=== PATIENT | male | born 1950 | race Caucasian/White ===

== ENCOUNTER 2021-01-14 13:52 | Observation (INO) ==
[2021-01-14] MEDS ORDERED: oxyCODONE/Acetamin 5/325 mg TAB PO ONE (15:17)
[2021-01-14 15:48] LABS: Hematocrit 38 % (42-52); Mean Corpuscular HGB Conc 35 g/dL (31-36); Mean Corpuscular Hemoglobin 31 pg (27-31); Mean Corpuscular Volume 88 fL (80-94); Mean Platelet Volume 9.4 fL (7.4-10.4); Platelet Count 191 10^3/uL (150-450); Red Blood Count 4.27 10^6 /uL (4.18-5.48); Red Cell Distribution Width 13 % (10-15); White Blood Count 16.7 10^3/uL (3.5-10.8)
[2021-01-14 15:59] LABS: Albumin 3.6 g/dL (3.2-5.2); Calcium 8.9 mg/dL (8.6-10.3); Potassium 3.8 mmol/L (3.5-5.0); Total Bilirubin 0.7 mg/dL (0.2-1.0)
[2021-01-14 16:04] LABS: Albumin/Globulin Ratio 1.1 (1-3); C Reactive Protein 152.52 mg/L (<8.01); EGFR African American 101.5 (>60); EGFR Non-African American 83.9 (>60); Globulin 3.4 g/dL (2-4)
[2021-01-14] MEDS ORDERED: Piperacillin/Tazobac ADVAN 3.375 GM in NS 0.9% 100 ml BAG 100 ML IV ONE (16:41)
[2021-01-14] MEDS ORDERED: NS 0.9% 1000 ml BAG 1,000 ML IV ONE (16:41)
[2021-01-14] MEDS ORDERED: Piperacillin/Tazobac 3.375 GM BAG ONE (16:53)
[2021-01-14] MEDS ORDERED: Iohexol 300 (CONTRAST) 10 ML SDV IV ONE (17:13)
[2021-01-14 17:27] LABS: Urine Appearance Clear; Urine Bilirubin Negative (Negative); Urine Blood Negative (Negative); Urine Color Yellow; Urine Glucose Negative (Negative); Urine Ketones Negative (Negative); Urine Nitrite Negative (Negative); Urine Protein Negative (Negative); Urine Urobilinogen Negative (Negative)
[2021-01-14] MEDS ORDERED: HYDROcodone/ACETAMIN 5/325 mg TAB PO PRN (19:43)
[2021-01-14] MEDS ORDERED: Ondansetron 4 mg VIAL 2 MG/ML 2 ml VIAL IV PRN (19:43)
[2021-01-14] MEDS: Piperacillin/Tazobactam VIAL 3.375 GM in NS 0.9% 100 ml BAG 100 ML IVPB SCH (22:32)
[2021-01-14] MEDS: D5W 1/2 NS 1000 ml BAG 1,000 ML IV SCH (22:32)
[2021-01-14] MEDS: HYDROmorphone 1 MG/1 ML SYRINGE IV SLOW PU PRN (22:33)
[2021-01-15] MEDS: Piperacillin/Tazobactam VIAL 3.375 GM in NS 0.9% 100 ml BAG 100 ML IVPB SCH (05:43)
[2021-01-15] MEDS: HYDROmorphone 1 MG/1 ML SYRINGE IV SLOW PU PRN ×2 (05:43→08:46)
[2021-01-15 05:44] LABS: ABS Basophils 0.1 10^3/ul (0-0.2); ABS Eosinophils 0.3 10^3/ul (0-0.6); ABS Lymphocytes 1.4 10^3/ul (1.0-4.8); ABS Neutrophils 9.1 10^3/ul (1.5-7.7); Eosinophil % 2.4 %; Hematocrit 38 % (42-52); Hemoglobin 13.1 g/dL (14.0-18.0); Lymphocyte % 11.5 %; Mean Corpuscular HGB Conc 34 g/dL (31-36); Mean Corpuscular Hemoglobin 31 pg (27-31); Mean Corpuscular Volume 90 fL (80-94); Mean Platelet Volume 9.2 fL (7.4-10.4); Nucleated Red Blood Cells % 0.1; Platelet Count 186 10^3/uL (150-450); Red Blood Count 4.25 10^6 /uL (4.18-5.48); Red Cell Distribution Width 13 % (10-15); White Blood Count 11.8 10^3/uL (3.5-10.8)
[2021-01-15 06:06] LABS: C Reactive Protein 138.28 mg/L (<8.01); Calcium 8.5 mg/dL (8.6-10.3); EGFR African American 101.5 (>60); EGFR Non-African American 83.9 (>60); Potassium 3.4 mmol/L (3.5-5.0)
[2021-01-15] MEDS: D5W 1/2 NS 1000 ml BAG 1,000 ML IV SCH (10:33)
[2021-01-15 11:46] VITALS: BP 125/86
== END 2021-01-15 13:00 | disposition home or self-care (01) ==
LOC: ED 13:52 → SSU 13:52
PROVIDERS: ADMIT Surgery Surgical Critical Care; ATTEND Surgery Surgical Critical Care